=== PATIENT | male | born 1955 | race Caucasian/White ===

== ENCOUNTER 2017-08-27 15:09 | Inpatient (IN) | payer MEDICAID ==
[~2017-08-27] VITALS: Ht 172.7 cm; Wt 82.6 kg
--- NOTE | 2017-08-27 07:30 | NUR ---
PT BROUGHT UP TO [facility] UNIT VIA [facility]. REPORT GIVEN AT BEDSIDE FOR TRANSFER OF CARE FORM ER TO [facility]. PT AO X 3, SKIN INTACT, IV SITE AT 22 G RUNNING ZITHROMAX ORDERED IN ER. . HOB UP 35%,. PT TRANSFERRED TO BED AND MADE COMFORTABLE. V/S FOLLOWS T 98.5 P 102 R 22 B/P 107/78 O2 96 WITH 3 L VIA N/C.
--- NOTE | 2017-08-27 15:12 | NUR ---
PT W/C ASSISTED TO BED 7.
[2017-08-27 15:18] VITALS: BP 81/55
--- NOTE | 2017-08-27 15:53 | NUR ---
PATIENT IS A 62 YO MALE BIB FRIENDS VIA WHEELCHAIR FOR COUGH AND FEELING WEAK. HE IS AWAKE AND ALERT GROANING AND NOT VERBALIZING TO BED 7 PLACED ON BUDGET ANALYST AND IV STARTED.
--- NOTE | 2017-08-27 16:05 | NUR ---
XRAY AT BED SIDE
--- NOTE | 2017-08-27 16:20 | NUR ---
PATIENT REFUSING ABG AT THIS TIME. MD NOTIFIED. WILL FOLLOW UP NEEDED.
[2017-08-27] MEDS ORDERED: NACL 0.9% 1,000 ML IV ONE ×4 (17:00→18:15)
[2017-08-27] MEDS ORDERED: AZITHROMYCIN 500 MG in DEXTROSE 5% 250 ML IV ONE (17:00)
[2017-08-27 17:05] LABS: BASOPHILS % (AUTO) 0.5 % (0.0-2.0); EOSINOPHILS % (AUTO) 0.2 % (0.0-4.0); HEMATOCRIT 47.2 % (36-52); HEMOGLOBIN 15.4 g/dL (12.0-18.0); LYMPHOCYTES # (AUTO) 0.4 K/uL (2.0-11.5); LYMPHOCYTES % (AUTO) 11.1 % (20.5-51.1); MEAN CORPUSCULAR HEMOGLOBIN 29 pg (27-31); MEAN CORPUSCULAR HGB CONC 33 g/dL (33-37); MEAN CORPUSCULAR VOLUME 89.6 fL (80-94); MONOCYTES # (AUTO) 0.1 K/uL (0.8-1.0); MONOCYTES % (AUTO) 1.7 % (1.7-9.3); NEUTROPHILS # (AUTO) 3.2 K/uL (1.8-7.7); NEUTROPHILS % (AUTO) 86.5 % (42.2-75.2); PLATELET COUNT (AUTO) 214 K/uL (140-450); RED BLOOD CELL COUNT(AUTO) 5.27 MIL/uL (4.20-6.10); RED CELL DISTRIBUTION WIDTH 15.2 % (11.6-13.7); WHITE BLOOD COUNT (AUTO) 3.7 K/uL (4.8-10.8)
[2017-08-27 17:14] LABS: ANION GAP 15.1 (8-16); CARBON DIOXIDE 27.1 mmol/L (21-32); CREATININE 2.5 mg/dL (0.7-1.3); POTASSIUM 4.2 mmol/L (3.5-5.1)
[2017-08-27 17:20] LABS: ALBUMIN 2.9 g/dL (3.4-5.0)
[2017-08-27 17:27] LABS: PROTHROMBIN TIME 11.5 secs (10.8-13.4)
[2017-08-27] MEDS ORDERED: cefTRIAXone 1,000 MG VIAL ONE (17:30)
[2017-08-27] MEDS ORDERED: AZITHROMYCIN 500 MG INJ VIAL IV ONE (17:30)
[2017-08-27 17:37] LABS: CKMB RELATIVE INDEX 1.1 (0.0-2.5); CREATINE KINASE MB 4.2 ng/mL (0-3.6)
[2017-08-27] MEDS ORDERED: ALBUTEROL SULFATE/IPRATROPIU 3 ML SOL IH ONE (17:40)
--- NOTE | 2017-08-27 18:00 | NUR ---
PT POSITIONED FOR COMFORT, O2 SAT BETWEEN 95-100%
[2017-08-27] MEDS: NACL 0.9% 1,000 ML IV SCH (18:03)
[2017-08-27] MEDS ORDERED: ACETAMINOPHEN 325 MG TAB PO PRN (18:05)
[2017-08-27] MEDS ORDERED: ONDANSETRON 4 MG/2 ML VIAL IM/IVP PRN (18:05)
[2017-08-27] MEDS ORDERED: MORPHINE SULFATE 2 MG/ML SYR IVP PRN (18:05)
[2017-08-27] MEDS ORDERED: DOCUSATE SODIUM 100 MG GELCAP PO PRN (18:05)
[2017-08-27] MEDS ORDERED: HYDROcodone/APAP 5/325 MG 1 TAB TAB PO PRN (18:05)
[2017-08-27 18:19] LABS: APPEARANCE,URINE SL CLOUDY (CLEAR); BLOOD, URINE NEGATIVE (NEGATIVE); COLOR,URINE ORANGE (YELLOW); LEUKOCYTE ESTERASE ,URINE NEGATIVE (NEGATIVE); NITRITE, URINE POSITIVE (NEGATIVE); PH,URINE 5.5 (5.0-9.0); UGLUCOSE NEGATIVE (NEGATIVE)
[2017-08-27 18:21] LABS: BILIRUBIN,URINE NEGATIVE (NEGATIVE)
[2017-08-27 18:26] LABS: FINE GRANULAR CASTS,URINE 0-10 /LPF (None Seen); RBC,URINE 0-5 (RARE) /HPF (0-5); WBC,URINE 6-15 (FEW) /HPF (0-5)
[2017-08-27 18:49] LABS: CHOL/HDL RATIO 2.1 (1-4.5); FREE T4 (FREE THYROXINE) 0.78 ng/dL (0.76-1.46); MAGNESIUM 1.5 mg/dL (1.8-2.4); PHOSPHORUS 3.4 mg/dL (2.5-4.9); THYROID STIMULATING HORMONE 3.76 uIU/mL (0.34-3.74)
[2017-08-27] MEDS: CLINDAMYCIN 600 MG in DEXTROSE 5% 50 ML IV SCH (19:00)
[2017-08-27] MEDS: LEVOFLOXACIN 750 MG/D5W PREMIX 150 ML IV SCH (19:00)
[2017-08-27 19:15] LABS: BARBITURATE, URINE NEG. ng/ml (NEG <=200); BENZODIAZEPINE, URINE NEG. ng/mL (NEG <=200); CANNABINOID, URINE POS. ng/mL (NEG <=50); COCAINE, URINE NEG. ng/mL (NEG <=300); OPIATE, URINE NEG. ng/mL (NEG <=2000); PHENCYCLIDINE SCREEN,URINE NEG. ng/mL (NEG <=25)
--- NOTE | 2017-08-27 19:31 | NUR ---
Patient will be admitted to care of DR PALOMINO. Admited to TELE. Will go to room 110B . Belongings list completed. Report to MELBA GUILLAUME.
[2017-08-27] MEDS ORDERED: FLUTICASONE NASAL 50 MCG/ACTUATION 16 GM BTL NS SCH (20:30)
--- NOTE | 2017-08-27 20:30 | NUR ---
ALEKSEY CALLED TO REPORT CRITICAL LAB OF LACTIC ACID AT 3.2, WHICH IS TRENDING DOWNWARD FROM 4.6.COVERING DOCTOR, DR KRUGER, AWARE.
--- NOTE | 2017-08-27 21:00 | NUR ---
COLLECTED SPUTUM SAMPLE WHICH IS BLOOD TINGED, AND SENT TO THE LAB.
[2017-08-27] MEDS ORDERED: CLINDAMYCIN 600 MG/4 ML VIAL ONE (21:13)
[2017-08-27] MEDS ORDERED: MAGNESIUM OXIDE 400 MG TAB PO SCH (21:15)
--- NOTE | 2017-08-27 21:30 | NUR ---
ULTRA SOUND OF CHEST DONE AT BEDSIDE.
[2017-08-27 22:40] VITALS: BP 107/78
[2017-08-27] MEDS: ZOLPIDEM 5 MG TAB PO PRN (23:01)
[2017-08-28] MEDS: CLINDAMYCIN 600 MG in DEXTROSE 5% 50 ML IV SCH ×2 (01:00→06:15)
--- NOTE | 2017-08-28 01:00 | NUR ---
PHARMACY WAS CALLED REGARDING THE TIME FRAME OF THE CLINDAMYCIN, PHARMACY TO RE-SCHEDULE THE TIME OF THE ABT AND COVERING DOCTOR DIANA IS AWARE.
[2017-08-28 04:00] VITALS: BP 134/68
--- NOTE | 2017-08-28 04:30 | NUR ---
PT IN BED IV RUNNING ORDERED. PT HAS N/C ON AT 4L, AND CAN AMBULATE TO BATHROOM AND BACK. PT CONTINUES TO HAVE A PRODUCTIVE COUGH, AWAITING SPUTUM SAMPLE ANALYSIS FROM LAB. PT LYING IN BED RESTING, LAB CAME IN AND PT ALMOST REFUSED BUT WAS WILLING TO TAKE BLOOD DRAW AFTER ENCOURAGEMENT FROM PRIMARY STAFF.
[2017-08-28] MEDS ORDERED: ALBUTEROL SULFATE/IPRATROPIU 3 ML SOL IH SCH (06:00)
[2017-08-28] MEDS ORDERED: CLINDAMYCIN 600 MG/4 ML VIAL ONE (06:14)
[2017-08-28 06:18] LABS: HEMATOCRIT 40.7 % (36-52); HEMOGLOBIN 13.2 g/dL (12.0-18.0); MEAN CORPUSCULAR HEMOGLOBIN 29 pg (27-31); MEAN CORPUSCULAR HGB CONC 33 g/dL (33-37); MEAN CORPUSCULAR VOLUME 88.8 fL (80-94); PLATELET COUNT (AUTO) 143 K/uL (140-450); RED BLOOD CELL COUNT(AUTO) 4.58 MIL/uL (4.20-6.10); RED CELL DISTRIBUTION WIDTH 14.9 % (11.6-13.7); WHITE BLOOD COUNT (AUTO) 6.1 K/uL (4.8-10.8)
[2017-08-28 06:46] LABS: ANION GAP 15.6 (8-16); CARBON DIOXIDE 22.6 mmol/L (21-32); CREATININE 1.3 mg/dL (0.7-1.3); POTASSIUM 4.2 mmol/L (3.5-5.1)
--- NOTE | 2017-08-28 06:53 | NUR ---
RECEIVED PATIENT ON 3L NC, O2 SAT 95%. NO HHN GIVEN AT THIS TIME, PATIENT SLEEPING. NO RESPIRATORY DISTRESS NOTED AT THIS TIME. WILL CONTINUE TO MONITOR.
[2017-08-28 06:55] LABS: MAGNESIUM 1.3 mg/dL (1.8-2.4); PHOSPHORUS 2.5 mg/dL (2.5-4.9)
--- NOTE | 2017-08-28 07:00 | NUR ---
RECEIVED BEDSIDE REPORT FROM POUAKO KURA KAUPAPA MAORI NURSE. PATIENT IS AWAKE, STATING HES "SUPERMAN". ALERT AND ORIENTEDX4. PATIENT IS IN DISTRESS ON 4L NC. OXYGEN LEVEL IS 93%. PATIENT IS ANXIOUS AND RESTLESS. HX METH. HE AMBULATES BUT IS NOT STEADY. SKIN IS INTACT. URINAL AT BEDSIDE. IV ON L AC 20 INFUSING CLINDAMYCIN AT 100ML/HR. IV IS CLEAN, DRY AND INTACT. PATIENT HAS NO OTHER COMPLAINTS AT THIS TIME. TELE MONITOR IN PLACE. FALL RISK PROTOCOL. WILL CONTINUE TO MONITOR THE PATIENT.
[2017-08-28] MEDS ORDERED: MAG SULF 2000 MG/WATER PREMIX 50 ML IV ONE (07:20)
[2017-08-28 07:57] LABS: EOSINOPHILS % (MANUAL) 2 % (0-4); LYMPHOCYTES % (MANUAL) 16 % (20-46); MONOCYTES % (MANUAL) 14 % (5-12)
[2017-08-28 08:00] VITALS: BP 116/80
[2017-08-28] MEDS: LACTOBACILLUS RHAMNOSUS GG 1 EACH CAP PO SCH (08:18)
[2017-08-28] MEDS: LORazepam 2 MG/ML VIAL IM/IVP PRN ×2 (08:18→15:57)
[2017-08-28] MEDS: FLUTICASONE NASAL 50 MCG/ACTUATION 16 GM BTL NS SCH (08:28)
--- NOTE | 2017-08-28 08:30 | NUR ---
PLACED A NEW IV L UPPER ARM 22G INFUSING NS AT 60ML/HR. IV IS CLEAN, DRY AND INTACT. PATIENT ACCIDENTLY PULLED OUT THE OTHER ONE. ADMINISTERED MEDS. PATIENT TOLERATED WELL. ADMINISTERED ATIVAN. PATIENT IS ANXIOUS STATING HE CANT BREATHE. ALSO HELPS TO PREVENT WITHDRAWAL. PATIENT IS POSITIVE FOR METH AND CANNABINOIDS. PATIENT IS TIRED AND KEEPS STATING HE JUST WANTS TO SLEEP. WILL CONTINUE TO MONITOR THE PATIENT.
[2017-08-28] MEDS ORDERED: ACETAMINOPHEN 120 MG SUPP RC PRN (08:55)
[2017-08-28] MEDS ORDERED: AZITHROMYCIN 500 MG in DEXTROSE 5% 250 ML IV SCH (09:00)
--- NOTE | 2017-08-28 09:00 | NUR ---
PATIENT IS SLEEPING. NO SIGNS OF DISTRESS. WILL CONTINUE TO MONITOR THE PATIENT.
[2017-08-28] MEDS ORDERED: DILTIAZEM 25 MG/5 ML VIAL IVP SCH (10:00)
[2017-08-28] MEDS: MAGNESIUM SULFATE 1GM in DEXTROSE 5% 100 ML PREMIX IV SCH ×2 (10:49→11:30)
[2017-08-28] MEDS: NACL 0.9% 1,000 ML IV SCH (10:55)
[2017-08-28] MEDS ORDERED: LORazepam 2 MG/ML VIAL IM/IVP SCH (11:15)
[2017-08-28] MEDS ORDERED: MORPHINE SULFATE 2 MG/ML SYR IVP SCH (11:15)
[2017-08-28 12:00] VITALS: BP 134/57
[2017-08-28] MEDS: CLINDAMYCIN PHOS 600MG/D5W PM 50 ML IV SCH ×2 (12:00→18:38)
--- NOTE | 2017-08-28 12:45 | NUR ---
ADMINISTERED A ONE TIME DOSE OF MORPHINE 1MG IVP. PATIENT COMPLAINS OF PAIN ON LOWER ABD. BED IN LOW POSITION. CALL LIGHT WITHIN REACH. WILL CONTINUE TO MONITOR THE PATIENT.
--- NOTE | 2017-08-28 12:53 | NUR ---
ADMINISTERED MEDS. PATIENT TOLERATING WELL. IV IS CLEAN, DRY AND INTACT. WILL CONTINUE TO MONITOR PATIENT. IS AT BEDSIDE.
[2017-08-28] MEDS: ALBUTEROL SULFATE/IPRATROPIU 3 ML SOL IH SCH ×2 (14:01→20:44)
--- NOTE | 2017-08-28 14:13 | NUR ---
SCHEDULED BREATHING TREATMENT ADMINISTERED. TOLERATED TX. NO ADVERSE SIDE EFFECTS. WILL CONTINUE TO MONITOR.
--- NOTE | 2017-08-28 15:57 | NUR ---
PATIENT IS ANXIOUS. HE STATES HE JUST WANTS TO SLEEP. PATIENT IS RESTLESS AND KEEPS ROCKING HIS BODY IN BED. ADMINISTERED MEDS. PATIENT TOLERATED WELL. IV IS CLEAN, DRY AND INTACT. WILL CONTINUE TO MONITOR THE PATIENT.
[2017-08-28 16:00] VITALS: BP 113/56
--- NOTE | 2017-08-28 17:35 | NUR ---
PATIENT IS SLEEPING. NO SIGNS OF DISTRESS ON 4L NC. BED IN LOW POSITION. CALL LIGHT WITHIN REACH. WILL CONTINUE TO MONITOR THE PATIENT. DAUGHTER AT BEDSIDE
--- NOTE | 2017-08-28 19:25 | NUR ---
REPORT RECEIVED FORM DIONNE RN AT BEDSIDE FOR TRANSFER OF CARE. PT IN LOW BED WITH ALL FALLS PRECAUTIONS IN PLACE. BED ALARM ON AND CALL SHAH IN REACH. PT HAS FAMILY (STEP DAUGHTER ) AT BEDSIDE AT THIS TIME. PT IS AO X 2 , HE ALSO HAS N/C RUNNING AT 4 l AND AN IV SITE ON LEFT UPPER ARM AT 22g SITE ASYMPTOMATIC AND FLUSHED PATENT. PT CHANGED DUE TO SOILED SHORTS AND LINEN ALSO CHANGE, FOR CLEANLINESS AND COMFORT.PT DID SUPPLY REPEAT SPUTUM SAMPLE FOR LAB. SAMPLE IS SMALL AND BLOOD TINGED. PT A LITTLE RESTLESS BUT NO C/O OF PAIN AT THIS TIME.
--- NOTE | 2017-08-28 19:25 | NUR ---
GAVE BEDSIDE REPORT TO PICKER AND PACKER NURSE. PATIENT IS IN STABLE CONDITION
[2017-08-28 20:00] VITALS: BP 113/57
--- NOTE | 2017-08-28 20:45 | NUR ---
RESPIRATORY AT BEDSIDE FOR BREATHING TREATMENT. 02 CHECKED BY RESPIRATORY PT STATING 95% WITH 4 LITERS.
[2017-08-28] MEDS: DILTIAZEM 30 MG TAB PO SCH (21:04)
--- NOTE | 2017-08-28 22:30 | NUR ---
PT IN LOW BED, WITH ALL FALL PRECAUTIONS IN PLACE, PT ASSISTED TO TOILET BUT HAVING UNSTEADY GAIT. IV SITE TO R UPPER ARM INTACT AND RUNNING 60MLS N/S. RESPIRATORY HERE TO GIVE NEB TXT. PT O 4 L N/C. NO C/O OF PAIN OR DISTRESS NOTED.
[2017-08-29] VITALS: BP 83/46
[2017-08-29] MEDS: CLINDAMYCIN PHOS 600MG/D5W PM 50 ML IV SCH ×4 (00:32→17:49)
--- NOTE | 2017-08-29 01:00 | NUR ---
PT HAD INCONTINENT EPISODE LINENS CHANGED AND ALL NEEDS ATTENDED BY STAFF.
[2017-08-29] MEDS: NACL 0.9% 1,000 ML IV SCH ×2 (03:23→20:03)
[2017-08-29 04:00] VITALS: BP 103/59
--- NOTE | 2017-08-29 04:00 | NUR ---
PT HAD ANOTHER INCONTINENT EPISODE., PT IN LOW BED WITH FALL PRECAUTIONS IN PLACE. ALL LINENS CHANGED, PT ASSISTED TO TOILET BUT SAID I DONT HAVE TO GO. PT ASSISTED BACK TO BED O2 PLACED BACK ON PT NOSE RESPIRATIONS EVEN AND UNLABORED. CALL SHAH IN REACH AND ALL NEEDS ATTENDED BY SSTAFF
--- NOTE | 2017-08-29 06:00 | NUR ---
PT SLEEPING IN BED NO S/S OF DISTRESS. PT ENCOURAGED TO TURN AND CHANGE POSITION IV ASYMPOTMATIC AND FLUSHED PATENT.
[2017-08-29 06:42] LABS: HEMATOCRIT 35.3 % (36-52); HEMOGLOBIN 11.8 g/dL (12.0-18.0); MEAN CORPUSCULAR HEMOGLOBIN 29 pg (27-31); MEAN CORPUSCULAR HGB CONC 33 g/dL (33-37); MEAN CORPUSCULAR VOLUME 86.7 fL (80-94); PLATELET COUNT (AUTO) 120 K/uL (140-450); RED BLOOD CELL COUNT(AUTO) 4.07 MIL/uL (4.20-6.10); RED CELL DISTRIBUTION WIDTH 14.8 % (11.6-13.7); WHITE BLOOD COUNT (AUTO) 11.6 K/uL (4.8-10.8)
[2017-08-29 07:12] LABS: CARBON DIOXIDE 26.1 mmol/L (21-32); CREATININE 1.1 mg/dL (0.7-1.3); POTASSIUM 4.1 mmol/L (3.5-5.1)
--- NOTE | 2017-08-29 07:15 | NUR ---
GAVE REPORT TO RN DAYSHIFT NURSE AT [facility] PT IN STABLE CONDITION.
--- NOTE | 2017-08-29 07:16 | NUR ---
RECEIVED BEDSIDE REPORT FROM MITIGATION SUPERVISOR NURSE. PATIENT IS SLEEPING. NO SIGNS OF DISTRESS ON 4L NC. VOMIT BAG AT BEDSIDE. PATIENT COUGHS BLOOD TINGED SPUTUM. DOCTOR IS AWARE. PATIENT AMBULATES WITH ASSISTANCE, GAIT IS NOT STEADY. SKIN INTACT. IV ON L UPPER ARM 22G INFUSING NS AT 60. CLEAN, DRY AND INTACT. TELE MONITOR IN PLACE. BED IN LOW POSITION. CALL LIGHT WITHIN REACH. URINAL AT BEDSIDE. WILL CONTINUE TO MONITOR THE PATIENT.
[2017-08-29 07:32] LABS: MAGNESIUM 2.6 mg/dL (1.8-2.4); PHOSPHORUS 1.8 mg/dL (2.5-4.9)
[2017-08-29 08:00] VITALS: BP 111/61
[2017-08-29] MEDS: ALBUTEROL SULFATE/IPRATROPIU 3 ML SOL IH SCH ×3 (08:03→20:07)
--- NOTE | 2017-08-29 08:07 | NUR ---
PT REFUSED BREATHING TX PT STATES HE WANTS TO EAT. PT NOT SOB AND NOT IN RESPIRATORY DISTRESS. BS CLEAR BILATERALLY.
[2017-08-29 08:53] LABS: EOSINOPHILS % (MANUAL) 1 % (0-4); LYMPHOCYTES % (MANUAL) 13 % (20-46); MONOCYTES % (MANUAL) 5 % (5-12)
[2017-08-29] MEDS: FLUTICASONE NASAL 50 MCG/ACTUATION 16 GM BTL NS SCH (08:55)
[2017-08-29] MEDS: LACTOBACILLUS RHAMNOSUS GG 1 EACH CAP PO SCH (08:55)
[2017-08-29] MEDS: DILTIAZEM 30 MG TAB PO SCH ×2 (08:55→21:32)
--- NOTE | 2017-08-29 09:00 | NUR ---
PATIENTS FAMILY SAYS THAT HE HAS TROUBLE SWALLOWING. HES NOT ABLE TO SWALLOW PILLS. ITS BEEN AN ISSUE FOR QUITE SOMETIME. WILL TALK TO DR ABOUT CHANGING DIET TO PUREE AND POSSIBLE SWALLOW EVAL. PATIENT HAS NO BEEN SEEN BY A DOCTOR ABOUT THE SWALLOWING ISSUE. PATIENT REFUSED MEDS. UNTIL I OFFERED TO CRUSH THEM. HE SAID HE WILL ONLY TAKE THE PILLS WITH PUDDING. PATIENT TOLERATED WELL. PLACED PATIENT BACK TO OXYGEN, HE REMOVED IT EARLIER. ALSO TRIED PUTTING HOB UP BUT PATIENT REFUSED. HE SAID HE BREATHES BETTER AND IS MORE COMFORTABLE WITH HEAD OF BED DOWN AND SIDE LYING. WILL CONTINUE TO MONITOR THE PATIENT,
--- NOTE | 2017-08-29 09:25 | NUR ---
PATIENT HAS BEEN SCREENED AND CATEGORIZED MODERATE NUTRITION RISK. PATIENT WILL BE SEEN WITHIN 3-5 DAYS OF ADMISSION. 08/30/17 09/01/[address]
--- NOTE | 2017-08-29 11:52 | NUR ---
ADMINISTERED MEDS. PATIENT TOLERATED WELL. BED IN LOW POSITION. CALL LIGHT WITHIN REACH. WILL CONTINUE TO MONITOR THE PATIENT. PATIENT IS SLEEPING. ON ROOM AIR. PATIENT REFUSED NC AT 4L AT THIS TIME. EDUCATED ON THE IMPORTANCE OF OXYGENATION, PATIENT STILL REFUSED
[2017-08-29 12:00] VITALS: BP 122/55
--- NOTE | 2017-08-29 12:10 | NUR ---
ULTRASOUND AT BEDSIDE. WILL CONTINUE TO MONITOR THE PATIENT.
--- NOTE | 2017-08-29 13:03 | NUR ---
CM NOTE INITIAL REVIEW FAXED TO [facility] [phone] PH# [phone] AND TO [facility] [phone] PH# [phone]
--- NOTE | 2017-08-29 13:55 | NUR ---
PATIENT IS SLEEPING. NO SIGNS OF DISTRESS ON 4L NC. BED IN LOW POSITION. CALL LIGHT WITHIN REACH. WILL CONTINUE TO MONITOR THE PATIENT.
[2017-08-29 16:00] VITALS: BP 111/53
--- NOTE | 2017-08-29 16:00 | NUR ---
VITALS ARE WITHIN NORMAL LIMITS. FAMILY AT BEDSIDE. WILL CONTINUE TO MONITOR THE PATIENT.
[2017-08-29] MEDS: LORazepam 2 MG/ML VIAL IM/IVP PRN ×2 (16:10→22:17)
[2017-08-29] MEDS ORDERED: SODIUM PHOS / POTASSIUM PHOS 1 PKT PDR PO SCH (16:30)
--- NOTE | 2017-08-29 17:54 | NUR ---
ADMINISTERED MEDS. PATIENT TOLERATED WELL. IV IS CLEAN, DRY AND INTACT. BED IN LOW POSITION. CALL LIGHT WITHIN REACH. AT BEDSIDE
--- NOTE | 2017-08-29 18:10 | NUR ---
PIPE RACKER Note 3:00-3:45 Bedside swallow evaluation completed. Please refer to PIPE RACKER evaluation for full report. Recommend: -Mechanical soft ground texture + thin liquids -Upright at 90 degrees and 20 mins after PO intake -Small bites/sips, slow rate, alternate bites/sips -PIPE RACKER to follow 3X/wk X 1wk for diet tolerance and implement safe swallow strategies. Educated family at bedside regarding swallow precautions and diet change. Swallow precautions placed at [facility]. G8996: CK G8997: CJ Swallow NOMS 4 Jamie Weeks, PIPE RACKER
--- NOTE | 2017-08-29 19:00 | NUR ---
GAVE BEDSIDE REPORT TO PITCH WORKER NURSE. PATIENT IN STABLE CONDITION
--- NOTE | 2017-08-29 19:01 | NUR ---
RECD. RESTING IN BED, AWAKE, A/OX3, RESPIRATION EVEN AND UNLABORED. ON 02 AT 2 LITERS VIA N/C. IV OF NS AT 60 ML/HR INFUSING LEFT AC G20. 02 SAT - 96%, ON ROOM AIR. SAFETY MEASURES ENFORCED. BED ON ALARM. PLAN OF CARE FOR THE SHIFT DISCUSSED. VERBALIZED UNDERSTANDING. DENIES PAIN 0/10.
--- NOTE | 2017-08-29 19:20 | NUR ---
ASSISTED TO GET OUT OF BED TO AMBULATE TO BR TO VOID. GAIT STEADY BUT WEAK. BACK TO BED AFTER VOIDING.
[2017-08-29 21:15] VITALS: BP 118/67
--- NOTE | 2017-08-29 21:30 | NUR ---
WANTS HIS MEDICATION TO BE CRUSHED AND GIVEN WITH PUDDING. CONDITION STABLE BUT COMPLAINING OF ABDOMINAL PAIN. ENDORSED TO AUNDREA ROLDAN FOR CONTINUITY OF CARE.
[2017-08-29] MEDS: LEVOFLOXACIN 750 MG/D5W PREMIX 150 ML IV SCH (21:31)
--- NOTE | 2017-08-29 21:31 | NUR ---
RECEIVED REPORT AT PT BEDSIDE FROM OPTICAL SALES ASSOCIATE, PT IS A/OX2, TO SELF AND PLACE. PT IS ON 3L O2 VIA NASAL CANNULA. PT IS ABLE TO MAKE NEEDS KNOWN, ABLE TO FOLLOW COMMANDS. RESPIRATIONS EVEN AND UNLABORED. PT SKIN IS INTACT. PT HAS 22G IV TO LEFT UPPER ARM, ASYMPTOMATIC, INTACT AND PATENT. UPDATED BOARD. VITAL SIGNS WITHIN NORMAL LIMITS, BUT PT IS SCREAMING AND IRRITABLE, PT COMPLAINING OF ABDOMINAL PAIN, ADMINISTERED MORPHINE ORDERED AFTER OBTAINING VITAL SIGNS, PT TOLERATED WELL. WILL REASSESS. PT STABLE, NO SIGNS OF DISTRESS NOTED AT THIS TIME. BED IN LOWEST POSITION, BED ALARM ON. CALL LIGHT WITHIN REACH, WILL CONTINUE TO MONITOR.
--- NOTE | 2017-08-29 22:20 | NUR ---
PT IS ANXIOUS AND KEEPS TRYING TO CLIMB OUT OF BED, BUT PT IS VERY WEAK. PT STILL SCREAMING. WILL SPEAK WITH DR MCDONNELL.
[2017-08-29] MEDS ORDERED: MORPHINE SULFATE 2 MG/ML SYR IVP SCH (23:00)
--- NOTE | 2017-08-29 23:22 | NUR ---
DR ORDERED AN EXTRA 1MG OF MORPHINE FOR PAIN. PT SCREAMING FROM PAIN BUT PT PULLED OUT IV. STARTED NEW 22G IV TO RIGHT WRIST AND ADMINISTERED MORPHINE ORDERED, PT TOLERATED WELL. WILL REASSESS IN ONE HOUR. NO SIGNS OF DISTRESS NOTED. BED IN LOWEST POSITION, CALL LIGHT WITHIN REACH. WILL CONTINUE TO MONITOR.
[2017-08-30] VITALS: BP 128/65
--- NOTE | 2017-08-30 | NUR ---
VITAL SIGNS WITHIN NORMAL LIMITS. PT RESTING QUIETLY AND CALM. FLACC 0. PT STABLE, NO SIGNS OF DISTRESS NOTED AT THIS TIME. BED IN LOWEST POSITION, BED ALARM ON. CALL LIGHT WITHIN REACH, WILL CONTINUE TO MONITOR.
--- NOTE | 2017-08-30 02:00 | NUR ---
PT STILL RESTING, PT CALM WITH RESPIRATIONS EVEN AND UNLABORED. PUT NASAL CANNULA BACK ON PT AND FIXED IT BECAUSE PT KEEPS TAKING IT OFF. NO SIGNS OF DISTRESS NOTED AT THIS TIME. BED IN LOWEST POSITION, BED ALARM ON. CALL LIGHT WITHIN REACH, WILL CONTINUE TO MONITOR.
[2017-08-30 04:00] VITALS: BP 127/87
--- NOTE | 2017-08-30 04:00 | NUR ---
VITAL SIGNS WITHIN NORMAL LIMITS. PT STABLE, NO SIGNS OF DISTRESS NOTED AT THIS TIME. BED IN LOWEST POSITION, BED ALARM ON. CALL LIGHT WITHIN REACH, WILL CONTINUE TO MONITOR.
[2017-08-30] MEDS: CLINDAMYCIN PHOS 600MG/D5W PM 50 ML IV SCH ×5 (05:13→23:40)
[2017-08-30] MEDS: ALBUTEROL SULFATE/IPRATROPIU 3 ML SOL IH SCH ×3 (07:00→19:49)
[2017-08-30 07:35] LABS: BASOPHILS # (AUTO) 0.1 K/uL (0.00-0.22); BASOPHILS % (AUTO) 0.7 % (0.0-2.0); EOSINOPHILS # (AUTO) 0.2 K/uL (0-0.4); EOSINOPHILS % (AUTO) 2.4 % (0.0-4.0); HEMATOCRIT 37.4 % (36-52); HEMOGLOBIN 12.6 g/dL (12.0-18.0); LYMPHOCYTES # (AUTO) 0.6 K/uL (2.0-11.5); MEAN CORPUSCULAR HEMOGLOBIN 29 pg (27-31); MEAN CORPUSCULAR HGB CONC 34 g/dL (33-37); MEAN CORPUSCULAR VOLUME 86.7 fL (80-94); MONOCYTES # (AUTO) 0.4 K/uL (0.8-1.0); MONOCYTES % (AUTO) 4.3 % (1.7-9.3); NEUTROPHILS # (AUTO) 7.3 K/uL (1.8-7.7); NEUTROPHILS % (AUTO) 85.6 % (42.2-75.2); PLATELET COUNT (AUTO) 127 K/uL (140-450); RED BLOOD CELL COUNT(AUTO) 4.32 MIL/uL (4.20-6.10); RED CELL DISTRIBUTION WIDTH 15.1 % (11.6-13.7); WHITE BLOOD COUNT (AUTO) 8.6 K/uL (4.8-10.8)
--- NOTE | 2017-08-30 07:36 | NUR ---
ENDORSED PT TO DAY SHIFT RN FOR CONTINUITY OF CARE. PT IN STABLE CONDITION.
--- NOTE | 2017-08-30 07:40 | NUR ---
RECEIVED PT FROM PUNCH PRESS FEEDER NURSE, PT IS ASLEEP AND LYING ON THE BED WITH O2 ON 3L NC IN PLACE. SIDE RAILS ARE UP AND CALL LIGHT WITHIN REACH. RESPIRATIONS EVEN. PT HAS AN IV LINE ON THE RT WRIST G. 22 WITH NS RUNNING AT 60ML/HR, INTACT. NO SIGN S OF DISTRESS NOTED. WILL CONTINUE TO MONITOR.
[2017-08-30 08:00] VITALS: BP 116/65
--- NOTE | 2017-08-30 08:10 | NUR ---
PT IS AWAKE AND COMPLAINING OF PAIN, RT WAS CALLED BEC PT'S O2 SAT IS GOING DOWN TO 80%. RT RESPONDED AND GAVE PT A BREATHING TREATMENT. PT TOLERATED IT. VITAL SIGNS TAKEN AND IS STABLE NOW. PT VERBALIZED A PAIN RATE OF 8/10. NO OTHER SIGN OF DISCOMFORT NOTED. WILL MEDICATE THE PT FOR HIS PAIN.
[2017-08-30 08:18] LABS: PHOSPHORUS 2.1 mg/dL (2.5-4.9)
[2017-08-30 08:21] LABS: CARBON DIOXIDE 24.7 mmol/L (21-32); CREATININE 0.9 mg/dL (0.7-1.3); POTASSIUM 3.7 mmol/L (3.5-5.1)
[2017-08-30] MEDS: ALBUTEROL SULFATE/IPRATROPIU 3 ML SOL IH PRN (08:30)
[2017-08-30] MEDS: LACTOBACILLUS RHAMNOSUS GG 1 EACH CAP PO SCH (08:50)
[2017-08-30] MEDS: MORPHINE SULFATE 2 MG/ML SYR IVP PRN (08:51)
[2017-08-30] MEDS: FLUTICASONE NASAL 50 MCG/ACTUATION 16 GM BTL NS SCH (09:00)
[2017-08-30] MEDS: DILTIAZEM 30 MG TAB PO SCH ×2 (09:00→20:37)
--- NOTE | 2017-08-30 09:00 | NUR ---
PT IS AWAKE AND MEDICATIONS GIVEN ENSURING ASPIRATION PRECAUTION. PT TOLERATED THE MEDICATION AND NO SIGN OF DISCOMFORT NOTED. WILL MONITOR.
--- NOTE | 2017-08-30 10:45 | NUR ---
ULTRASOUND OF THE ABDOMEN WAS BEING DONE TO THE PT NOW. PT IS CALM AND RESTING. NO SIGN OF DISTRESS NOTED. WILL CONTINUE TO MONITOR.
--- NOTE | 2017-08-30 10:54 | NUR ---
CM NOTE CONCURRENT REVIEW FAXED TO [facility] [phone] PH# [phone] AND TO [facility] [phone] PH# [phone]
[2017-08-30 12:00] VITALS: BP 144/87
--- NOTE | 2017-08-30 12:15 | NUR ---
SWALLOW EVALUATION WAS BEING DONE TO THE PT NOW.
--- NOTE | 2017-08-30 12:27 | NUR ---
JOURNEYMAN PRESS OPERATOR NOTE [id number] S/O: Pt seen at bedside awake, alert, and cooperative. Pt reported not receiving a meal yet. RN aware. A/P: Reviewed safe swallowing strategies. Pt trialed with puree (4 oz) and thin liquids by straws. PO trials focused on small bites/sips at slow rate and alternating solids/liquids. Pt also cued to do effortful swallows. Pt coughed X1 with puree but reported no sensation of food/liquid getting stuck in throat area. Pt refused trials of crackers. Jamie Weeks, JOURNEYMAN PRESS OPERATOR
--- NOTE | 2017-08-30 12:30 | NUR ---
INFORMED DR. KINNEY OF THE PT'S DIET AND MD SAID THAT PT WILL STILL BE ON NPO UNTIL DR. FAROOQ SEES THE PT. ACKNOWLEDGED WHAT DR. KINNEY SAID AND PT WILL STILL BE ON NPO.
[2017-08-30] MEDS: NACL 0.9% 1,000 ML IV SCH (12:43)
[2017-08-30] MEDS ORDERED: KETOROLAC 30 MG/ML VIAL IVP SCH (14:00)
--- NOTE | 2017-08-30 15:35 | NUR ---
PT ON 4L OXYMIZER
[2017-08-30 16:00] VITALS: BP 117/66
--- NOTE | 2017-08-30 19:25 | NUR ---
ENDORSED PT TO CARPENTER PROTOTYPE NURSE, JUDITH, FOR CONTINUITY OF CARE. PT IS STABLE AT THIS TIME.
--- NOTE | 2017-08-30 19:26 | NUR ---
REPORT RECEIVED FROM AM NURSE. PT IN STABLE CONDITION. AAOX2. BOARD UPDATED AND INTRODUCED SELF TO PT. SKIN WARM, DRY, AND INTACT. IV SITE PATENT AND INTACT. CALL SHAH WITHIN REACH. BED LOCKED IN LOW POSITION. WILL CONTINUE TO MONITOR.
[2017-08-30 20:00] VITALS: BP 120/64
--- NOTE | 2017-08-30 20:35 | NUR ---
PM MED GIVEN. PT TOLERATED WELL.
--- NOTE | 2017-08-30 23:00 | NUR ---
PT ASLEEP IN BED. CHEST EXPANSION NOTED. WILL CONTINUE TO MONITOR.
[2017-08-31] VITALS: BP 141/84
[2017-08-31] MEDS: ALBUTEROL SULFATE/IPRATROPIU 3 ML SOL IH PRN (00:06)
[2017-08-31] MEDS: LORazepam 2 MG/ML VIAL IM/IVP PRN (00:13)
--- NOTE | 2017-08-31 00:13 | NUR ---
PT O2 SAT AT 85%. RT CALLED FOR A BREATHING TREATMENT. ATIVAN GIVEN TO HELP CALM THE PT DOWN. PT TOLERATED WELL. Addendum: 08/31/17 at 0122 by Alfonzo Sue RN PT C/O NOT BEING ABLE TO BREATHE. PT ALSO DOES NOT COMPLY AND TAKES OFF OXIMIZER.
--- NOTE | 2017-08-31 02:44 | NUR ---
PT HAVING N/V. ZOFRAN GIVEN. PT TOLERATED WELL.
[2017-08-31 04:00] VITALS: BP 111/75
--- NOTE | 2017-08-31 05:00 | NUR ---
PT SLEEPING NO MORE FEELINGS OF N/V. PT NOT IN ANY ACUTE DISTRESS. WILL CONTINUE TO MONITOR.
[2017-08-31] MEDS: CLINDAMYCIN PHOS 600MG/D5W PM 50 ML IV SCH (06:12)
[2017-08-31 07:00] LABS: HEMATOCRIT 41.7 % (36-52); HEMOGLOBIN 14.1 g/dL (12.0-18.0); MEAN CORPUSCULAR HEMOGLOBIN 29 pg (27-31); MEAN CORPUSCULAR HGB CONC 34 g/dL (33-37); MEAN CORPUSCULAR VOLUME 85.9 fL (80-94); PLATELET COUNT (AUTO) 157 K/uL (140-450); RED BLOOD CELL COUNT(AUTO) 4.86 MIL/uL (4.20-6.10); RED CELL DISTRIBUTION WIDTH 15.5 % (11.6-13.7); WHITE BLOOD COUNT (AUTO) 12.2 K/uL (4.8-10.8)
[2017-08-31] MEDS: ALBUTEROL SULFATE/IPRATROPIU 3 ML SOL IH SCH ×3 (07:00→19:10)
--- NOTE | 2017-08-31 07:05 | NUR ---
NO HHN GIVEN AT THIS TIME DUE TO PTS HEART RATE BEING 134 AND PT SLEEPING
--- NOTE | 2017-08-31 07:05 | NUR ---
REPORT GIVEN TO AM NURSE. PT IN STABLE CONDITION.
--- NOTE | 2017-08-31 07:10 | NUR ---
RECEIVED PT FROM CLIMATOLOGIST NURSEJUDITH, PT IS ASLEEP LYING ON THE BED, RESPIRATIONS EVEN AND PT IS ON O2 3L OXYMIZER. PT HAS AN IV LINE ON THE LEFT FOREARM G. 20, INTACT., SIDE RAILS ARE UP AND CALL LIGHT WITHIN REACH. NO SIGN OF DISTRESS NOTED AND WILL CONTINUE TO MONITOR.
[2017-08-31 07:45] LABS: LYMPHOCYTES % (MANUAL) 16 % (20-46); MONOCYTES % (MANUAL) 4 % (5-12)
[2017-08-31 07:49] LABS: ANION GAP 12.7 (8-16); CARBON DIOXIDE 26.1 mmol/L (21-32); CREATININE 1.1 mg/dL (0.7-1.3); POTASSIUM 3.8 mmol/L (3.5-5.1)
[2017-08-31 07:56] LABS: MAGNESIUM 1.9 mg/dL (1.8-2.4); PHOSPHORUS 3.6 mg/dL (2.5-4.9)
[2017-08-31 08:00] VITALS: BP 141/82
--- NOTE | 2017-08-31 08:20 | NUR ---
PT IS ASLEEP LYING ON THE BED, VITAL SIGNS TAKEN AND IS STABLE. NO SIGN OF DISTRESS NOTED AND WILL CONTINUE TO MONITOR.
[2017-08-31] MEDS ORDERED: PROMETHAZINE 25 MG/ML VIAL IM SCH (09:00)
[2017-08-31] MEDS: DILTIAZEM 30 MG TAB PO SCH ×2 (09:39→20:52)
[2017-08-31] MEDS: LACTOBACILLUS RHAMNOSUS GG 1 EACH CAP PO SCH (09:39)
[2017-08-31] MEDS: FUROSEMIDE 40 MG/4 ML VIAL IVP SCH (09:40)
[2017-08-31] MEDS: FLUTICASONE NASAL 50 MCG/ACTUATION 16 GM BTL NS SCH (09:40)
--- NOTE | 2017-08-31 09:45 | NUR ---
PT IS AWAKE LYING ON THE BED, MEDICATIONS GIVEN AND PT TOLERATED IT. NO SIGN OF DISTRESS NOTED. WILL MONITOR.
--- NOTE | 2017-08-31 11:05 | NUR ---
08/31/17 RD INITIAL ASSESSMENT COMPLETED PLEASE REFER TO NUTRITION ASSESSMENT UNDER CARE ACTIVITY FOR ESTIMATED NEEDS. RECOMMENDATIONS: 1. WHEN MEDICALLY ABLE CONTINUE GROUND TEXTURE DIET PER ST RECOMMENDATIONS. 2. MAY NEED TO CONSIDER ADDED A MORE AGGRESSIVE BOWEL REGIMEN IF PT CONTINUES WITHOUT A BM. 3. RD WILL FOLLOW UP IN 2-3 DAYS; HIGH RISK. JOÃO DRIVER RD, [facility]
--- NOTE | 2017-08-31 12:05 | NUR ---
DR. SUN VISITED AND SPOKE TO THE PT AND THE FAMILY. DR. SUN SAID THAT A PT EVALUATION WILL BE ORDERED FOR THE PT.
--- NOTE | 2017-08-31 13:25 | NUR ---
pt off unit having xray procedure done no hhn given
--- NOTE | 2017-08-31 13:30 | NUR ---
[facility] TOOK PT FOR A ESOPHAGRAM. PT' VITALS IS TAKEN AND IS STABLE. NO SIGN OF DISTRESS NOTED.
--- NOTE | 2017-08-31 14:10 | NUR ---
PT WAS BACK FROM THE RADIOLOGY FROM FOR THE CT OF ABDOMEN AND PELVIS WITH CONTRAST. PT IS CALM AND NOT TALKING. NO SIGN OF DISTRESS NOTED ON THE PT.
[2017-08-31] MEDS: PIPER/TAZO 3.375GM/D5W PREMIX 50 ML IV SCH ×2 (14:19→20:53)
--- NOTE | 2017-08-31 19:20 | NUR ---
ENDORSED PT TO ASSEMBLER FILTERS NURSEJUDITH FOR CONTINUITY OF CARE. PT IS STABLE AT THIS TIME.
--- NOTE | 2017-08-31 19:21 | NUR ---
REPORT RECEIVED FROM AM NURSE. PT IN STABLE CONDITION. AAOX2. INTRODUCED SELF AND BOARD UPDATED. PT IS SLIGHTLY EMOTIONAL DUE TO HIS CURRENT CONDITION AND LIMITATIONS. EDUCATED ON MD'S CURRENT INTERVENTIONS AND MOTIVATED TO PUT UP WITH CURRENT TREATMENT PLAN. PT STATED HE WANTS TO LEAVE AND DOES NOT WANT TO BE SICK ANYMORE. SKIN WARM, DRY, AND INTACT WITH NO OPEN WOUNDS. IV SITE PATENT AND INTACT, FLUSHES WELL RUNNING D5 1/2NS AT 70ML/HR. CALL SHAH WITHIN REACH. BED LOCKED IN LOW POSITION.
[2017-08-31 20:00] VITALS: BP 100/53
[2017-08-31] MEDS: DEXT 5% / NACL 0.45% 1,000 ML IV SCH (20:21)
--- NOTE | 2017-08-31 20:50 | NUR ---
PM MEDS GIVEN. PT TOLERATED WELL. APPROVED CARDIZEM GIVEN WITH SMALL AMOUNT OF APPLESAUCE DUE TO PT UNABLE TO SWALLOW FULL PILLS. PT ON ASPIRATION PRECAUTION. WILL CONTINUE TO MONITOR.
[2017-08-31] MEDS: MORPHINE SULFATE 2 MG/ML SYR IVP PRN (20:53)
--- NOTE | 2017-08-31 21:55 | NUR ---
PT SLEEPING IN BED COMFORTABLY. CHEST EXPANSION IS VISIBLE. PT ON 3L OXIMIZER.
[2017-09-01] VITALS (8 sets, daily range): BP systolic 99–121; BP diastolic 50–73
--- NOTE | 2017-09-01 | NUR ---
PT ASLEEP IN BED RIGHT LATERAL BUT AROUSABLE. WILL CONTINUE TO MONITOR.
--- NOTE | 2017-09-01 01:45 | NUR ---
PT STILL ASLEEP RIGHT LATERAL WITH OXIMIZER IN PLACE. PT STILL ON TELE MONITORING WITH NO ACUTE DISTRESS SEEN.
[2017-09-01] MEDS: PIPER/TAZO 3.375GM/D5W PREMIX 50 ML IV SCH ×3 (04:13→20:23)
[2017-09-01] MEDS: MORPHINE SULFATE 2 MG/ML SYR IVP PRN ×3 (04:13→21:25)
--- NOTE | 2017-09-01 04:13 | NUR ---
MORPHINE GIVEN FOR PAIN 09/06. PT TOLERATED WELL. HELPED CALMED THE PT DOWN AND HELPED HIM SLEEP.
--- NOTE | 2017-09-01 05:45 | NUR ---
RADIOLOGY CAME TO TAKE HIM TO GET A CHEST XRAY. IV LINE DC'ED.
--- NOTE | 2017-09-01 05:50 | NUR ---
PT BACK FROM XRAY. RECONNECTED TO IV.
[2017-09-01 06:01] LABS: BASOPHILS % (AUTO) 0.3 % (0.0-2.0); EOSINOPHILS # (AUTO) 0.1 K/uL (0-0.4); EOSINOPHILS % (AUTO) 0.8 % (0.0-4.0); HEMATOCRIT 38.4 % (36-52); HEMOGLOBIN 13.1 g/dL (12.0-18.0); LYMPHOCYTES # (AUTO) 0.9 K/uL (2.0-11.5); LYMPHOCYTES % (AUTO) 6.1 % (20.5-51.1); MEAN CORPUSCULAR HEMOGLOBIN 29 pg (27-31); MEAN CORPUSCULAR HGB CONC 34 g/dL (33-37); MEAN CORPUSCULAR VOLUME 84.9 fL (80-94); MONOCYTES # (AUTO) 1.1 K/uL (0.8-1.0); MONOCYTES % (AUTO) 7.7 % (1.7-9.3); NEUTROPHILS % (AUTO) 85.1 % (42.2-75.2); PLATELET COUNT (AUTO) 163 K/uL (140-450); RED BLOOD CELL COUNT(AUTO) 4.53 MIL/uL (4.20-6.10); RED CELL DISTRIBUTION WIDTH 15.1 % (11.6-13.7); WHITE BLOOD COUNT (AUTO) 14.1 K/uL (4.8-10.8)
[2017-09-01 06:54] LABS: ANION GAP 8.5 (8-16); CARBON DIOXIDE 31.9 mmol/L (21-32); CREATININE 0.9 mg/dL (0.7-1.3); POTASSIUM 3.4 mmol/L (3.5-5.1)
[2017-09-01] MEDS: ALBUTEROL SULFATE/IPRATROPIU 3 ML SOL IH SCH ×3 (06:55→14:20)
--- NOTE | 2017-09-01 07:03 | NUR ---
RECEIVED PT IN PRONE PT REFUSED HHN AT THIS TIME PT ON OXYMIZER BREATH SOUNDS PRESENT BILAT COARSE WILL CONTINUE TO MONITOR PT
--- NOTE | 2017-09-01 07:12 | NUR ---
REPORT GIVEN TO AM NURSE. PT IN STABLE CONDITION.
--- NOTE | 2017-09-01 07:14 | NUR ---
RECEIVED BEDSIDE REPORT FROM INTEGRATIVE MEDICINE PHYSICIAN NURSE. PATIENT IS SLEEPING. NO SIGNS OF DISTRESS ON OXYMIZER 3L. PATIENT REFUSED MORNING BREATHING TX BECAUSE HE JUST WANTS TO SLEEP. PATIENT IS NPO EXCEPT MEDS, PER DR GALE AND DR PARNELL, IT IS OK TO GIVE PATIENT A CUP OF ICE CHIPS. PATIENT IS NPO FOR A POSSIBLE EGD TODAY AND HE HAS ASPIRATION PRECAUTIONS BECAUSE HE ASPIRATED ON BARIUM THE OTHER DAY. PATIENT WOKE UP AND IS CRYING FOR FOOD AND WATER, ONLY ABLE TO GIVE ONE CUP OF ICE CHIPS. PATIENT ON TELE MONITOR. IV ON L FA 20G INFUSING D51/2 NS AT 70ML/HR. IV IS CLEAN DRY AND INTACT. DR PEREZ TO SEE PATIENT LATER. BED IN LOW POSITION. CALL LIGHT WITHIN REACH. WILL CONTINUE TO MONITOR THE PATIENT.
--- NOTE | 2017-09-01 08:35 | NUR ---
PATIENT IS SLEEPING. NO SIGNS OF DISTRESS ON 3 L OXIMIZER. WILL CONTINUE TO MONITOR THE PATIENT.
[2017-09-01] MEDS: LACTOBACILLUS RHAMNOSUS GG 1 EACH CAP PO SCH (09:00)
[2017-09-01] MEDS: DILTIAZEM 30 MG TAB PO SCH ×2 (09:00→20:23)
[2017-09-01] MEDS: FUROSEMIDE 40 MG/4 ML VIAL IVP SCH (09:56)
[2017-09-01] MEDS: FLUTICASONE NASAL 50 MCG/ACTUATION 16 GM BTL NS SCH (09:56)
--- NOTE | 2017-09-01 10:20 | NUR ---
PATIENT IS COMPLAINING OF PAIN. ADMINISTERED PRN PAIN MED. PATIENT TOLERATED WELL. WILL CONTINUE TO MONITOR THE PATIENT.
[2017-09-01] MEDS: DEXT 5% / NACL 0.45% 1,000 ML IV SCH (10:29)
--- NOTE | 2017-09-01 10:30 | NUR ---
removed pt from oxymizer anleft on room air pt desaturating to.85 and below placed back on oxy mizer 5lpm will continue to monitor patti walton aware
--- NOTE | 2017-09-01 11:35 | NUR ---
KEITH NOTE CONCURRENT REVIEW FAXED TO [facility] [phone] PH# [phone] AND TO [facility] [phone] PH# [phone] KEITH BAILEY 575 Addendum: 09/01/17 at 1344 by Dorie Hwang CM RECEIVED CALL FROM MIGUEL GARAY [facility] STATING THAT FOR ANY DISCHARGE NEEDS TO CONTACT [facility] KEITH HAYDEN PH# [phone] [phone]
[2017-09-01] MEDS ORDERED: fentaNYL 0.05 MG/ML VIAL ONE ×2 (12:13→12:53)
[2017-09-01] MEDS ORDERED: MIDAZOLAM 2 MG/2 ML VIAL ONE ×3 (12:13→12:54)
[2017-09-01] MEDS ORDERED: diphenhydrAMINE 50 MG/ML VIAL ONE (12:13)
[2017-09-01] MEDS: MIDAZOLAM 2 MG/2 ML VIAL IVP ONE ×2 (12:30→14:28)
--- NOTE | 2017-09-01 12:30 | NUR ---
PATIENT LEFT IN BED WITH OR NURSE. PATIENT TO GET AN EGD. WILL MONITOR PATIENT WHEN HE GETS BACK
[2017-09-01] MEDS: fentaNYL 0.05 MG/ML VIAL IVP ONE ×2 (12:31→14:27)
[2017-09-01] MEDS: diphenhydrAMINE 50 MG/ML VIAL IVP ONE ×2 (12:35→14:27)
[2017-09-01] MEDS: ACETYLCYSTEINE 10% (100 MG/ML) 100 MG/ML VIAL INH SCH ×2 (13:00→14:24)
--- NOTE | 2017-09-01 14:20 | NUR ---
PATIENT BACK FROM THE OR, PATIENT GOT AN EGD DONE. THEY PLACED A BALLOON IN THE ESOPHAGUS TO DILATE IT BECAUSE IT WAS CONSTRICTED AND THEY DEFLATED IT AND REMOVED IT. THEY ALSO GOT AN H. PYLORI BIOPSY. THEN PATIENT WHEN TO CT TO GET A CT GUIDED DRAINAGE OF AN ABSCESS IN THE PSOAS MUSCLE. PATIENT HAS A DRAINAGE BACK ON THE L SIDE OF HIS BACK. DRESSING IS CLEAN, DRY AND INTACT. PATIENT IS AWAKE, ALERT AND ORIENTED. VITALS ARE WITHIN NORMAL LIMITS. WILL CONTINUE TO MONITOR THE PATIENT.
--- NOTE | 2017-09-01 14:32 | NUR ---
PATIENT IS GETTING A BREATHING TX, RT AT BEDSIDE
--- NOTE | 2017-09-01 15:05 | NUR ---
PATIENT LOOKS AND FEELS BETTER AFTER HIS PROCEDURES. HE IS NOT TOSSING AND TURNING IN BED, HE SHOWS NO SIGNS OF ANXIETY, HIS OXYGEN SATS ARE DOING BETTER. FAMILY AT BEDSIDE. WILL CONTINUE TO MONITOR THE PATIENT. DR WATKINS GAVE THE OK TO GIVE THE PATIENT SPRITE, CLOSELY MONITORING PATIENT FOR ASPIRATION. PATIENT TOLERATING SODA WELL. WILL CONTINUE TO MONITOR THE PATIENT.
--- NOTE | 2017-09-01 17:09 | NUR ---
PATIENT GOT SECOND SWALLOW EVAL DONE. RECOMMENDS MECH SOFT, GROUNDED. SIT UP RIGHT. SMALL BITES. WILL MONITOR PATIENT DURING DINNER.
--- NOTE | 2017-09-01 18:12 | NUR ---
CHAIR CANER NOTE S/O: Pt seen at bedside awake and alert. Pt presents with a baseline cough. A/P: Reviewed safe swallow strategies with pt. Pt given PO trials of thin liquids, puree, and ty cracker. Pt tolerated PO trials with no immediate overt s/s of aspiration. Vocal quality was clear after swallows. Pt exhibited intermittent coughing during PO trials but appeared to be from baseline cough. Recommend mechanical soft ground texture + thin liquids CHAIR CANER to continue to follow pt 3x/wk x 2 wks [id number]: CJ [id number]: CI Swallow NOMS 5 Jamie Weeks, CHAIR CANER
--- NOTE | 2017-09-01 19:10 | NUR ---
GAVE BEDSIDE REPORT TO [facility] OPERATOR NURSE. PATIENT IS IN STABLE CONDITION
[2017-09-01] MEDS: ALBUTEROL SULFATE/IPRATROPIU 3 ML SOL IH PRN (19:15)
--- NOTE | 2017-09-01 19:35 | NUR ---
RECEIVED FROM AM RN IN BED SITTING UP. WITH ON GOING BREATHING TREATMENT. ABLE TO VERBALIZE NEEDS WELL. NO COMPLAINTS OF PAIN DONE AT THIS TIME. PT. ABLE TO VERBALIZE NEEDS WELL. ON TELEMETRY MONITORING. USES URINAL TO URINATE. ON 5 LPM/OXYMIZER WITH 02 SAT OF 95 %. A/O X 4. ROM X 4. DRAINING TUBE WITH DRAINAGE BAG TO LEFT SIDE FOR ABCESS. OTPUT SEROSANGUINOUS IN COLOR. S/P /07/15 . CARE PLANS FOR THE NIGHT DISCUSSED WITH HIM. CALL LIGHT WITH IN REACH. PT. ABLE TO SUCTION HIMSELF WITH P.O. WHEN HE COUGHS. ENCOURAGED TO CALL FOR ANY HELP HE MAY NEED. IVF SITE TO [facility]20 INTACT AND INFUSING D5 1/2 NS AT 70 ML.
--- NOTE | 2017-09-01 20:07 | NUR ---
PT. SLEEPING AT THIS TIME AFTER BREATHING TREATMENT DONE. REFUSED TO EAT. STATED THAT HE HAS NO APPETITE AT THIS TIME. CALL LIGHT WITH IN REACH.
--- NOTE | 2017-09-01 21:33 | NUR ---
AWAKE AT THIS TIME , SITTING UP IN BED , COUGHING AND SUCTIONING HIMSELF. REQUESTED FOR PAOIN RELIEVER RT " MY LEFT SIDE REALLY HURTS. MEDICATED WITH MORPHINE 2 MG IVP ORDERED. VERBALIZES NEEDS WELL IN WELSH.
[2017-09-02 00:44] VITALS: BP 104/59
--- NOTE | 2017-09-02 00:46 | NUR ---
PT WOKE UP AND URINATED IN BEDDING. CHANGED BEDDING AND KEPT DRY. WENT BACK TO SLEEP
--- NOTE | 2017-09-02 02:41 | NUR ---
PT. WOKE UP AND URINATED IN URINAL PROVIDED BUT ACCIDENTALLY DISCONTINUED IVF . WILL INSERT NEW IVF SITE.
[2017-09-02 04:42] VITALS: BP 104/62
[2017-09-02] MEDS: PIPER/TAZO 3.375GM/D5W PREMIX 50 ML IV SCH ×3 (05:57→20:43)
--- NOTE | 2017-09-02 06:15 | NUR ---
SLEEPING WELL AFTER IVF NEW LINE INSERTED BY CHARGE NURSE. WAKES UP EVERY NOW AND THEN TO COUGH AND SUCTION HIMSELF WITH YANKER. NO FURTHER PAIN COMPLAINTS DONE. WITH SCANT OUTPUT FROM DRAINAGE OF ABSCESS, ABLE TO VERBALIZE NEEDS WELL. TELEMTRY MONITORING.
[2017-09-02 07:10] LABS: BASOPHILS % (AUTO) 0.3 % (0.0-2.0); EOSINOPHILS # (AUTO) 0.1 K/uL (0-0.4); EOSINOPHILS % (AUTO) 0.5 % (0.0-4.0); HEMOGLOBIN 12.3 g/dL (12.0-18.0); LYMPHOCYTES # (AUTO) 1.1 K/uL (2.0-11.5); LYMPHOCYTES % (AUTO) 7.4 % (20.5-51.1); MEAN CORPUSCULAR HEMOGLOBIN 29 pg (27-31); MEAN CORPUSCULAR HGB CONC 33 g/dL (33-37); MEAN CORPUSCULAR VOLUME 87.3 fL (80-94); MONOCYTES # (AUTO) 0.8 K/uL (0.8-1.0); MONOCYTES % (AUTO) 4.9 % (1.7-9.3); NEUTROPHILS # (AUTO) 13.5 K/uL (1.8-7.7); NEUTROPHILS % (AUTO) 86.9 % (42.2-75.2); PLATELET COUNT (AUTO) 192 K/uL (140-450); RED BLOOD CELL COUNT(AUTO) 4.24 MIL/uL (4.20-6.10); RED CELL DISTRIBUTION WIDTH 15.5 % (11.6-13.7); WHITE BLOOD COUNT (AUTO) 15.5 K/uL (4.8-10.8)
--- NOTE | 2017-09-02 07:10 | NUR ---
RECEIVED REPORT FROM NIGHT RN. PT RESTING IN BED. AAOX3-4, WITH PERIODS OF CONFUSION. NO S/S OF ACUTE DISTRESS. PT DENIES PAIN. IV SITE PATENT AND INTACT. ON 5L OXYMIZER. DRAIN TO LEFT ABDOMEN DRAINING. DRESSING DRY AND INTACT. CALL LIGHT WITHIN REACH. SAFETY MEASURES ENSURED. WILL CONTINUE TO MONITOR.
[2017-09-02 07:21] LABS: ANION GAP 9.3 (8-16); CARBON DIOXIDE 30.9 mmol/L (21-32); CREATININE 0.9 mg/dL (0.7-1.3); POTASSIUM 3.2 mmol/L (3.5-5.1)
[2017-09-02 07:23] LABS: MAGNESIUM 1.8 mg/dL (1.8-2.4); PHOSPHORUS 2.8 mg/dL (2.5-4.9)
[2017-09-02] MEDS: ACETYLCYSTEINE 10% (100 MG/ML) 100 MG/ML VIAL INH SCH ×3 (07:31→19:26)
[2017-09-02] MEDS: ALBUTEROL SULFATE/IPRATROPIU 3 ML SOL IH SCH ×3 (07:31→19:24)
[2017-09-02 07:55] VITALS: BP 113/58
--- NOTE | 2017-09-02 08:59 | NUR ---
CM NOTE CONCURRENT REVIEW FAXED TO [facility] [phone] KEITH JACKELYN PH# [phone] [facility] [phone] PH# [phone] KEITH BRISEIDA EXT [phone]. RECEIVED ORDER FOR HOME O2. FAXED ORDER TO [facility] AND LEFT SEVERAL MESSAGES TO [facility] KEITH AHYDEN. RECEIVED CALL FROM [facility] KEITH HAYDEN AND SHE SAID [facility] WILL AUTHORIZE THE OXYGEN AND SHE IS STILL WORKING ON THE AUTHORIZATION NUMBER. PER KEITH HAYDEN,GIVE HER DIRECT NUMBER PH# [phone] TO THE COMPANY THAT WILL DELIVER OXYGEN SO SHE CAN GIVE THE AUTHORIZATION. MESERET PARHAM.
--- NOTE | 2017-09-02 09:23 | NUR ---
DR. SUN IN TO SEE PT. PLAN OF CARE DISCUSSED WITH PT. PT VERBALIZED UNDERSTANDING.
[2017-09-02] MEDS: LACTOBACILLUS RHAMNOSUS GG 1 EACH CAP PO SCH (09:28)
[2017-09-02] MEDS: FUROSEMIDE 40 MG/4 ML VIAL IVP SCH (09:28)
[2017-09-02] MEDS: FLUTICASONE NASAL 50 MCG/ACTUATION 16 GM BTL NS SCH (09:28)
[2017-09-02] MEDS: DILTIAZEM 30 MG TAB PO SCH ×2 (09:28→20:43)
[2017-09-02] MEDS: LORazepam 2 MG/ML VIAL IM/IVP PRN (09:38)
--- NOTE | 2017-09-02 09:38 | NUR ---
PT STATES HE WANTS TO SLEEP AND IS FEELING ANXIOUS BECAUSE HE CANT SLEEP ANYMORE AND HIS CHEST HURTS BUT HE DOESN'T WANT PAIN MEDS AT THIS TIME. ATIVAN GIVEN FOR ANXIETY.
--- NOTE | 2017-09-02 10:01 | NUR ---
Dioramist Note: I faxed home oxygen MD order, patient's demographics, and RT notes to [facility], phone number . I called and spoke with Darren from [facility] , I informed him of home O2 referral. Per Darren, they have a contract with [facility]. I provided Darren with case supervisor Piedad from [facility]'s phone number .
--- NOTE | 2017-09-02 10:32 | NUR ---
PT UP AND AMBULATING TO BATHROOM. BED AND GOWN CHANGED. PT RESTING IN BED NOW. NO S/S OF ACUTE DISTRESS. WILL CONTINUE TO MONITOR.
[2017-09-02 12:00] VITALS: BP 111/83
--- NOTE | 2017-09-02 12:12 | NUR ---
SENIOR OPERATIONS MANAGER NOTE 11:15 Attempted to see pt for dysphagia tx but pt was asleep and when he was woken up he refused to participate and went back to sleep. Will re-attempt to see pt at later date. Jamie Weeks, SENIOR OPERATIONS MANAGER
--- NOTE | 2017-09-02 13:46 | NUR ---
PT SLEEPING IN BED. NO S/S OF ACUTE OF ACUTE DISTRESS. CALL LIGHT WITHIN REACH. SAFETY MEASURES ENSURED. FAMILY AT BEDSIDE.
--- NOTE | 2017-09-02 14:40 | NUR ---
Mold Setter Note: Per Darren from [facility] , portable home O2 will be delivered to patient's room today between 3pm-5pm, I informed patient's nurse Gumaro of this.
[2017-09-02] MEDS ORDERED: KCL 20 MEQ/WATER INJ PREMIX 200 ML IV SCH (15:00)
--- NOTE | 2017-09-02 15:28 | NUR ---
PORTABLE HOME O2 GIVEN DELIVERED TO PT'S ROOM. PT TEACHING ON HOW TO USE IT EXPLAINED WITH TECH AT BEDSIDE. ASKED FOR RETURN DEMONSTRATION BUT PT STATES HE IS TOO TIRED. WILL ENCOURAGE FAMILY TEACHING WHEN THEY ARE PRESENT.
[2017-09-02 15:51] VITALS: BP 110/62
--- NOTE | 2017-09-02 17:50 | NUR ---
PT STATES HE CAN'T STAND THE POTASSIUM INFUSING AND REFUSES IT AT THIS TIME. WILL NOTIFY
--- NOTE | 2017-09-02 19:08 | NUR ---
ENDORSED PLAN OF CARE TO NIGHT RN.
--- NOTE | 2017-09-02 19:30 | NUR ---
[facility] FOR CONTINUITY OF CARE. PT AAOX3. PT IV NOTED L HAND 22G SALINE LOCK. PT AMBULATE WITH CANE. PT HAS NO SOB NO S/S OF DISTRESS PT ON OXIMYZER 4L. PT HAS LEFT ABD WITH LUPE DRAINAGE FROM ABD ABSCESS. BED LOWERED CALL LIGHT WITHIN REACH. WILL CONTINUE TO MONITOR.
[2017-09-02 20:00] VITALS: BP 105/68
[2017-09-02] MEDS: MORPHINE SULFATE 2 MG/ML SYR IVP PRN (20:42)
--- NOTE | 2017-09-02 20:42 | NUR ---
AMBIEN GIVEN FOR INSOMNIA AND PT ABLE TO SWALLOW MED AND IS ASLEEP AT THIS MOMENT.
--- NOTE | 2017-09-02 20:42 | NUR ---
GAVE PT MORPHINE NO PAIN PT SLEEPING. WILL CONTINUE TO MONITOR.
[2017-09-03] VITALS: BP 100/50
[2017-09-03] MEDS: ZOLPIDEM 5 MG TAB PO PRN (00:07)
--- NOTE | 2017-09-03 02:13 | NUR ---
PT SLEEPING NO SOB NO S/S OF DISTRESS WILL CONTINUE TO MONITOR.
[2017-09-03 04:00] VITALS: BP 113/63
[2017-09-03] MEDS: PIPER/TAZO 3.375GM/D5W PREMIX 50 ML IV SCH ×2 (04:36→13:43)
[2017-09-03] MEDS: ALBUTEROL SULFATE/IPRATROPIU 3 ML SOL IH SCH ×2 (06:56→13:25)
[2017-09-03] MEDS: ACETYLCYSTEINE 10% (100 MG/ML) 100 MG/ML VIAL INH SCH ×2 (06:56→13:25)
--- NOTE | 2017-09-03 06:56 | NUR ---
pt sleeping with no signs of distress noted at this time,no hhn given
--- NOTE | 2017-09-03 07:30 | NUR ---
ENDORSED REPORT TO DAYSHIFT NURSE AT BEDSIDE FOR CONTINUITY OF CARE.
--- NOTE | 2017-09-03 07:33 | NUR ---
RECEIVED REPORT FROM TICKET COLLECTOR OR USHER RN. PATIENT IS RESTING IN BED, AROUSABLE BY VOICE. AAO X4. COUGHING AND SPUTUM NOTED. PATIENT IS ABLE TO SUCTION OWN MOUTH USING YANKAUER. SATURATING WELL ON OXYMIZER 4L. THERE IS LUPE DRAIN TO THE LEFT LOWER ABDOMEN FOR ABSCESS. SKIN IS OTHERWISE INTACT. LUNG SOUNDS COARSE IN BILATERAL LOWER GAY. HEART RHYTHM IS REGULAR. IV SITE IS PATENT AND ASYMPTOMATIC. PATIENT IS AMBULATORY. USES URINAL AT BEDSIDE. ALL SAFETY MEASURES ARE IN PLACE. WILL CONTINUE TO MONITOR.
[2017-09-03 08:00] VITALS: BP 106/62
[2017-09-03 09:18] LABS: HEMATOCRIT 39.1 % (36-52); HEMOGLOBIN 12.8 g/dL (12.0-18.0); MEAN CORPUSCULAR HEMOGLOBIN 29 pg (27-31); MEAN CORPUSCULAR HGB CONC 33 g/dL (33-37); MEAN CORPUSCULAR VOLUME 87.7 fL (80-94); PLATELET COUNT (AUTO) 267 K/uL (140-450); RED BLOOD CELL COUNT(AUTO) 4.45 MIL/uL (4.20-6.10); RED CELL DISTRIBUTION WIDTH 15.4 % (11.6-13.7); WHITE BLOOD COUNT (AUTO) 11.4 K/uL (4.8-10.8)
[2017-09-03 09:32] LABS: ANION GAP 7.5 (8-16); CARBON DIOXIDE 33.9 mmol/L (21-32); POTASSIUM 3.4 mmol/L (3.5-5.1)
[2017-09-03 09:39] LABS: LYMPHOCYTES % (MANUAL) 8 % (20-46); MONOCYTES % (MANUAL) 3 % (5-12)
[2017-09-03 09:43] LABS: MAGNESIUM 1.9 mg/dL (1.8-2.4); PHOSPHORUS 2.3 mg/dL (2.5-4.9)
[2017-09-03] MEDS: DILTIAZEM 30 MG TAB PO SCH (09:47)
--- NOTE | 2017-09-03 09:47 | NUR ---
SCHEDULED MEDICATIONS GIVEN PER MD ORDERS. NO COMPLAINTS OF PAIN OR DISTRESS. PATIENT IN STABLE CONDITION. WILL CONTINUE TO MONITOR.
[2017-09-03] MEDS: FLUTICASONE NASAL 50 MCG/ACTUATION 16 GM BTL NS SCH (09:48)
[2017-09-03] MEDS: FUROSEMIDE 40 MG/4 ML VIAL IVP SCH ×2 (09:49→09:59)
[2017-09-03] MEDS: LACTOBACILLUS RHAMNOSUS GG 1 EACH CAP PO SCH (09:49)
--- NOTE | 2017-09-03 11:21 | NUR ---
PATIENT COMPLAINING OF PAIN 5/10 IN THE ABDOMEN AT THE LEVEL OF THE DIAPHRAGM. PAIN IS AGGRAVATED BY COUGH AND POSITION CHANGES. WILL ADMINISTER NORCO PER MD ORDERS. WILL CONTINUE TO MONITOR PT.
[2017-09-03 12:00] VITALS: BP 127/65
--- NOTE | 2017-09-03 13:43 | NUR ---
SCHEDULED ANTIBIOTICS ADMINISTERED AT THIS TIME. PATIENT SLEEPING, AROUSABLE BY VOICE. WILL CONTINUE TO MONITOR.
[2017-09-03] MEDS ORDERED: AMOX-999 PO (14:31)
[2017-09-03] MEDS ORDERED: LACT10CA1 PO (14:31)
[2017-09-03] MEDS ORDERED: POTASSIUM CHLORIDE 10 MEQ TABER PO SCH (15:00)
[2017-09-03] MEDS ORDERED: SODIUM PHOS / POTASSIUM PHOS 1 PKT PDR PO SCH (15:00)
[2017-09-03 16:00] VITALS: BP 121/71
--- NOTE | 2017-09-03 16:30 | NUR ---
DISCHARGE PAPERWORK, INCLUDING INSTRUCTIONS TO FOLLOW UP WITH PCP WITHIN ONE WEEK AND NEW PRESCRIPTIONS, GIVEN TO PATIENT. MEDICATION RECONCILIATION AND NEW PRESCRIPTION TEACHING GIVEN TO PATIENT AND FAMILY MEMBERS. PATIENT AND FAMILY MEMBERS AT BEDSIDE VERBALIZED COMPLETE UNDERSTANDING OF ALL DISCHARGE INSTRUCTIONS AND TEACHING. IV CANNULA REMOVED WITH MINIMAL BLOOD LOSS AND LUMEN COMPLETELY INTACT. IR DRAIN REMOVED FROM LEFT LOWER ABDOMEN WITH MINIMAL BLOOD LOSS AND DRAIN COMPLETELY INTACT. PHOTOS TAKEN AFTER REMOVAL. ID BANDS REMOVED. PATIENT IS IN STABLE CONDITION AND WILL GO HOME WITH FAMILY MEMBERS IN PRIVATE VEHICLE.
--- NOTE | 2017-09-03 17:00 | NUR ---
PATIENT DISCHARGED FROM UNIT WITH OXYGEN TANK. WILL GO HOME IN PRIVATE VEHICLE, ACCOMPANIED BY FAMILY MEMBERS.
--- NOTE | 2017-09-05 10:09 | NUR ---
BONER ME[employer] NOTE Pt discharged from hospital on 09/03/17. Pt discharged from . G8996: CJ G8997: CI G8998: CI Swallow NOMS 6 Jamie Weeks, [employer]
== END 2017-09-03 17:00 | disposition home or self-care (01) | DRG 710 ==
LOC: MED 15:09 → MTU 18:12
PROVIDERS: ADMIT Family Medicine; ATTEND Family Medicine
PROC: 0K9P0ZZ Drainage of Left Hip Muscle, Open Approach (ICD-10-PCS; principal; 2017-08-31)
PROC: 0D748ZZ Dilation of Esophagogastric Junction, Via Natural or Artificial Opening Endoscopic (ICD-10-PCS; 2017-09-01)
PROC: 0DB68ZX Excision of Stomach, Via Natural or Artificial Opening Endoscopic, Diagnostic (ICD-10-PCS; 2017-09-01 12:15)
DX: A41.9 Sepsis, unspecified organism (principal); N17.0 Acute kidney failure with tubular necrosis; J96.01 Acute respiratory failure with hypoxia; J69.0 Pneumonitis due to inhalation of food and vomit; K66.1 Hemoperitoneum; E44.0 Moderate protein-calorie malnutrition; K68.12 Psoas muscle abscess; K22.2 Esophageal obstruction; E88.09 Other disorders of plasma-protein metabolism, not elsewhere classified; E83.42 Hypomagnesemia; F41.9 Anxiety disorder, unspecified; N39.0 Urinary tract infection, site not specified; J30.9 Allergic rhinitis, unspecified; E86.0 Dehydration; F15.10 Other stimulant abuse, uncomplicated; K21.9 Gastro-esophageal reflux disease without esophagitis; K44.9 Diaphragmatic hernia without obstruction or gangrene; D64.9 Anemia, unspecified; E87.6 Hypokalemia; E83.39 Other disorders of phosphorus metabolism; E83.51 Hypocalcemia; Z68.27 Body mass index [BMI] 27.0-27.9, adult
CPT/HCPCS: 36415; 36600; 71045; 71046; 71270; 74220; 76604; 76705; 76881; 77012; 80048; 80053; 80305; 81001; 81025; 82150; 82550; 82553; 82803; 82948; 83036; 83605; 83690; 83735; 83880; 84100; 84134; 84439; 84443; 84479; 84484; 85025; 85610; 85730; 86677; 87040; 87070; 87075; 87081; 87086; 87205; 92526; 92610; 93005; 93970; 94640; 96361; 96365; 96367; 97127; 97799; 99291; C1729; J0456; J0696; J1200; J1885; J1940; J1956; J2001; J2060; J2250; J2270; J2405; J2543; J2550; J3010; J3480; J3490; J7030; J7060; J7620; Q0092; Q9967